=== PATIENT | male | born 1985 | race Hispanic/Latino ===

== ENCOUNTER 2021-04-04 12:09 | Emergency (ER) | payer OTHER ==
[~2021-04-04] VITALS: Ht 175.3 cm; Wt 147.4 kg
[2021-04-04] MEDS ORDERED: CASIRIVIMAB/IMDEVIMAB 10 ML in SODIUM CHLORIDE 0.9% 100 ML IV ONE (12:30)
[2021-04-04 14:21] VITALS: BP 145/87
== END 2021-04-04 14:23 | disposition home or self-care (01) ==
LOC: ER 13:01
DX: R06.02 Shortness of breath (principal); U07.1 COVID-19
CPT/HCPCS: 99284; J7050

== ENCOUNTER 2021-04-11 08:01 | Inpatient (IN) | payer OTHER ==
[~2021-04-11] VITALS: Ht 175.3 cm; Wt 150.1 kg
[2021-04-11] MEDS ORDERED: SODIUM CHLORIDE 0.9% 1000ML 1,000 ML IV STA (08:30)
[2021-04-11] MEDS ORDERED: DEXAMETHASONE SOD PHOS 10 MG/1 ML VIAL IV ONE (09:00)
[2021-04-11 09:07] LABS: BASOPHILS # (AUTO) 0.1 (0.0-0.1); BASOPHILS % 0.4 % (0.0-1.0); EOSINOPHILS # (AUTO) 0.2 (0.0-0.4); EOSINOPHILS % 0.9 % (0.0-6.0); HEMATOCRIT 37.3 % (38.2-49.6); HEMOGLOBIN 12.2 g/dL (14.0-18.0); LYMPHOCYTES # (AUTO) 1.7 (1.0-3.2); LYMPHOCYTES % 7.9 % (18.0-39.1); MEAN CORPUSCULAR HEMOGLOBIN 25.4 pg (28-32); MEAN CORPUSCULAR HGB CONC 32.7 g/dL (31-35); MEAN CORPUSCULAR VOLUME 77.7 fL (81-99); MONOCYTES # (AUTO) 1.2 (0.2-0.8); MONOCYTES % 5.6 % (4.4-11.3); NEUTROPHILS # (AUTO) 17.4 (2.1-6.9); NEUTROPHILS % 78.9 % (38.7-80.0); PLATELET COUNT 497 x10e3/uL (140-360)
[2021-04-11 09:57] LABS: ALBUMIN 3.5 g/dL (3.5-5.0); ALBUMIN/GLOBULIN RATIO 1.1 (0.8-2.0); CALCIUM 8.7 mg/dL (8.4-10.2); CREATININE, SERUM 0.85 mg/dL (0.72-1.25)
[2021-04-11 10:04] LABS: CREATINE KINASE MB 1.7 ng/mL (0-5.0)
[2021-04-11] MEDS ORDERED: MIDAZOLAM HCL 2 MG/2 ML VIAL ONE (11:58)
[2021-04-11] MEDS ORDERED: VECURONIUM BROMIDE FOR INJ 20 MG VIAL ONE (11:58)
[2021-04-11] MEDS ORDERED: WATER STERILE 10 ML VIAL ONE (11:58)
[2021-04-11] MEDS ORDERED: SUCCINYLCHOLINE CHLORIDE 20 MG/ML 10ML VIAL ONE (11:58)
[2021-04-11] MEDS ORDERED: ETOMIDATE 2 MG/ML 10 ML INJ IV ONE (11:58)
[2021-04-11] MEDS ORDERED: POTASSIUM CHLORIDE 10MEQ EA PO ONE (16:30)
[2021-04-11] MEDS ORDERED: REMDESIVIR 200MG 200 MG in SODIUM CHLORIDE 0.9% 100 ML 100 ML IV ONE (17:30)
[2021-04-11] MEDS: ASCORBIC ACID 500 MG TAB PO SCH (18:20)
[2021-04-11] MEDS: ENOXAPARIN SOD INJ 40 MG/0.4 ML SYR SC SCH (18:20)
[2021-04-11] MEDS: CEFTRIAXONE 1 GM in SODIUM CHLORIDE 0.9% 50ML 50 ML IV SCH (18:20)
[2021-04-11] MEDS: ACETAMINOPHEN 325 MG TAB PO PRN (18:57)
[2021-04-11 21:56] VITALS: BP 145/87
[2021-04-11 23:00] VITALS: BP 144/95
[2021-04-11 23:06] LABS: CREATINE KINASE MB 2.3 ng/mL (0-5.0)
[2021-04-12] VITALS (24 sets, daily range): BP systolic 101–172; BP diastolic 62–116
[2021-04-12 05:16] LABS: BASOPHILS % 0.3 % (0.0-1.0); EOSINOPHILS # (AUTO) 0.3 (0.0-0.4); HEMATOCRIT 33.5 % (38.2-49.6); LYMPHOCYTES # (AUTO) 1.5 (1.0-3.2); LYMPHOCYTES % 9.7 % (18.0-39.1); MEAN CORPUSCULAR HEMOGLOBIN 25.9 pg (28-32); MEAN CORPUSCULAR HGB CONC 32.8 g/dL (31-35); MEAN CORPUSCULAR VOLUME 78.8 fL (81-99); MONOCYTES # (AUTO) 0.6 (0.2-0.8); MONOCYTES % 3.6 % (4.4-11.3); NEUTROPHILS # (AUTO) 12.1 (2.1-6.9); NEUTROPHILS % 77.8 % (38.7-80.0); PLATELET COUNT 479 x10e3/uL (140-360); RED BLOOD COUNT 4.25 x10e6/uL (4.3-5.7); RED CELL DISTRIBUTION WIDTH 15.3 % (11.7-14.4)
[2021-04-12] MEDS: ENOXAPARIN SOD INJ 40 MG/0.4 ML SYR SC SCH ×2 (05:24→17:20)
[2021-04-12 05:44] LABS: ALBUMIN 3.2 g/dL (3.5-5.0); ANION GAP 14.2 mmol/L (8-16); CALCIUM 8.3 mg/dL (8.4-10.2); CREATININE, SERUM 0.74 mg/dL (0.72-1.25); POTASSIUM 3.2 mmol/L (3.5-5.1)
[2021-04-12] MEDS: ACETAMINOPHEN 325 MG TAB PO PRN ×2 (06:49→12:50)
[2021-04-12] MEDS ORDERED: POTASSIUM CHLORIDE 10MEQ EA PO ONE (08:45)
[2021-04-12] MEDS: CEFTRIAXONE 1 GM in SODIUM CHLORIDE 0.9% 50ML 50 ML IV SCH (08:52)
[2021-04-12] MEDS: DEXAMETHASONE SOD PHOS 10 MG/1 ML VIAL IV SCH (08:53)
[2021-04-12] MEDS: ZINC SULFATE 220 MG CAP PO SCH (08:53)
[2021-04-12] MEDS: ASCORBIC ACID 500 MG TAB PO SCH ×2 (08:53→17:20)
[2021-04-12 10:36] LABS: ANISOCYTOSIS SLIGHT; EOSINOPHILS % (MANUAL) 3 % (0-7); LYMPHOCYTES % (MANUAL) 10 % (19-48); MONOCYTES % (MANUAL) 4 % (3.4-9.0); MYELOCYTES % (MANUAL) 1 % (0-0); NEUTROPHILS % (MANUAL) 82 % (40-74); NUCLEATED RED BLOOD CELLS 1; PLATELET ESTIMATE SLIGHTLY INCREASED; PLATELET MORPHOLOGY COMMENT NORMAL; RBC MORPHOLOGY COMMENT NORMAL
[2021-04-12] MEDS: REMDESIVIR 100MG 100 MG in SODIUM CHLORIDE 0.9% 100 ML 100 ML IV SCH (13:35)
[2021-04-12] MEDS: GUAIFENESIN/CODEINE 5 ML LIQD PO PRN ×2 (15:29→20:53)
[2021-04-12] MEDS: ZOLPIDEM TARTRATE 5 MG TAB PO PRN (20:53)
[2021-04-13] VITALS (23 sets, daily range): BP systolic 120–164; BP diastolic 77–116
[2021-04-13] MEDS: ENOXAPARIN SOD INJ 40 MG/0.4 ML SYR SC SCH ×2 (06:09→17:22)
[2021-04-13 06:46] LABS: BASOPHILS % 0.2 % (0.0-1.0); EOSINOPHILS # (AUTO) 0.4 (0.0-0.4); EOSINOPHILS % 2.9 % (0.0-6.0); HEMATOCRIT 32.2 % (38.2-49.6); HEMOGLOBIN 10.6 g/dL (14.0-18.0); LYMPHOCYTES # (AUTO) 1.2 (1.0-3.2); LYMPHOCYTES % 9.4 % (18.0-39.1); MEAN CORPUSCULAR HGB CONC 32.9 g/dL (31-35); MEAN CORPUSCULAR VOLUME 78.9 fL (81-99); MONOCYTES # (AUTO) 0.5 (0.2-0.8); NEUTROPHILS # (AUTO) 10.1 (2.1-6.9); NEUTROPHILS % 78.7 % (38.7-80.0); PLATELET COUNT 466 x10e3/uL (140-360); RED BLOOD COUNT 4.08 x10e6/uL (4.3-5.7); RED CELL DISTRIBUTION WIDTH 15.7 % (11.7-14.4)
[2021-04-13 07:25] LABS: ALBUMIN 2.6 g/dL (3.5-5.0); ALBUMIN/GLOBULIN RATIO 0.7 (0.8-2.0); ANION GAP 14.4 mmol/L (8-16); CALCIUM 8.6 mg/dL (8.4-10.2); CREATININE, SERUM 0.72 mg/dL (0.72-1.25); MAGNESIUM 2.2 MG/DL (1.3-2.1); POTASSIUM 3.4 mmol/L (3.5-5.1)
[2021-04-13 07:53] LABS: FERRITIN 224.07 ng/mL (21.81-274.66)
[2021-04-13] MEDS: ZINC SULFATE 220 MG CAP PO SCH (08:06)
[2021-04-13] MEDS: ASCORBIC ACID 500 MG TAB PO SCH ×2 (08:06→17:22)
[2021-04-13] MEDS: CEFTRIAXONE 1 GM in SODIUM CHLORIDE 0.9% 50ML 50 ML IV SCH (08:06)
[2021-04-13] MEDS: DEXAMETHASONE SOD PHOS 10 MG/1 ML VIAL IV SCH (08:06)
[2021-04-13] MEDS: GUAIFENESIN/CODEINE 5 ML LIQD PO PRN ×3 (08:07→21:06)
[2021-04-13] MEDS ORDERED: POTASSIUM CHLORIDE 10MEQ EA PO ONE (10:15)
[2021-04-13] MEDS: ACETAMINOPHEN 325 MG TAB PO PRN ×2 (12:02→17:22)
[2021-04-13] MEDS ORDERED: REMDESIVIR 100MG 100 MG IV ONE (14:15)
[2021-04-13] MEDS ORDERED: SODIUM CHLORIDE 0.9% 100 ML ONE (14:16)
[2021-04-13] MEDS: REMDESIVIR 100MG 100 MG in SODIUM CHLORIDE 0.9% 100 ML 100 ML IV SCH (14:21)
[2021-04-13] MEDS: ZOLPIDEM TARTRATE 5 MG TAB PO PRN (21:06)
[2021-04-14] VITALS (24 sets, daily range): BP systolic 113–168; BP diastolic 69–104
[2021-04-14] MEDS: GUAIFENESIN/CODEINE 5 ML LIQD PO PRN ×4 (01:13→19:44)
[2021-04-14] MEDS: ACETAMINOPHEN 325 MG TAB PO PRN ×2 (01:13→10:23)
[2021-04-14] MEDS: ENOXAPARIN SOD INJ 40 MG/0.4 ML SYR SC SCH ×2 (04:57→16:36)
[2021-04-14 06:28] LABS: BASOPHILS % 0.1 % (0.0-1.0); EOSINOPHILS # (AUTO) 0.3 (0.0-0.4); EOSINOPHILS % 1.9 % (0.0-6.0); HEMATOCRIT 32.3 % (38.2-49.6); HEMOGLOBIN 10.4 g/dL (14.0-18.0); LYMPHOCYTES # (AUTO) 1.4 (1.0-3.2); LYMPHOCYTES % 9.4 % (18.0-39.1); MEAN CORPUSCULAR HEMOGLOBIN 25.6 pg (28-32); MEAN CORPUSCULAR HGB CONC 32.2 g/dL (31-35); MEAN CORPUSCULAR VOLUME 79.6 fL (81-99); MONOCYTES # (AUTO) 0.8 (0.2-0.8); MONOCYTES % 5.4 % (4.4-11.3); NEUTROPHILS # (AUTO) 11.6 (2.1-6.9); NEUTROPHILS % 80.8 % (38.7-80.0); PLATELET COUNT 508 x10e3/uL (140-360); RED BLOOD COUNT 4.06 x10e6/uL (4.3-5.7); RED CELL DISTRIBUTION WIDTH 15.9 % (11.7-14.4)
[2021-04-14 06:54] LABS: ALBUMIN 2.5 g/dL (3.5-5.0); ALBUMIN/GLOBULIN RATIO 0.7 (0.8-2.0); ANION GAP 13.9 mmol/L (8-16); CALCIUM 8.4 mg/dL (8.4-10.2); CREATININE, SERUM 0.69 mg/dL (0.72-1.25); POTASSIUM 3.9 mmol/L (3.5-5.1)
[2021-04-14] MEDS: REMDESIVIR 100MG 100 MG in SODIUM CHLORIDE 0.9% 100 ML IV SCH (09:18)
[2021-04-14] MEDS: DEXAMETHASONE SOD PHOS 10 MG/1 ML VIAL IV SCH (09:19)
[2021-04-14] MEDS: CEFTRIAXONE 1 GM in SODIUM CHLORIDE 0.9% 50ML 50 ML IV SCH (09:20)
[2021-04-14] MEDS: ZINC SULFATE 220 MG CAP PO SCH (09:21)
[2021-04-14] MEDS: CYANOCOBALAMIN 1,000 MCG TAB PO SCH (09:21)
[2021-04-14] MEDS: ASCORBIC ACID 500 MG TAB PO SCH ×2 (09:21→16:36)
[2021-04-14] MEDS ORDERED: ACETAMINOPHEN 1000 MG/100 ML IV STA (12:47)
[2021-04-14] MEDS: ZOLPIDEM TARTRATE 5 MG TAB PO PRN (20:29)
[2021-04-15] VITALS (24 sets, daily range): BP systolic 122–167; BP diastolic 74–133
[2021-04-15] MEDS: ACETAMINOPHEN 325 MG TAB PO PRN ×4 (00:07→20:25)
[2021-04-15] MEDS: GUAIFENESIN/CODEINE 5 ML LIQD PO PRN ×5 (05:03→22:53)
[2021-04-15] MEDS: ENOXAPARIN SOD INJ 40 MG/0.4 ML SYR SC SCH ×2 (05:03→17:03)
[2021-04-15 06:01] LABS: BASOPHILS # (AUTO) 0.1 (0.0-0.1); BASOPHILS % 0.2 % (0.0-1.0); EOSINOPHILS # (AUTO) 0.1 (0.0-0.4); EOSINOPHILS % 0.3 % (0.0-6.0); HEMOGLOBIN 10.7 g/dL (14.0-18.0); LYMPHOCYTES # (AUTO) 1.5 (1.0-3.2); MEAN CORPUSCULAR HGB CONC 32.4 g/dL (31-35); MEAN CORPUSCULAR VOLUME 80.1 fL (81-99); MONOCYTES # (AUTO) 1.2 (0.2-0.8); MONOCYTES % 5.4 % (4.4-11.3); NEUTROPHILS # (AUTO) 18.5 (2.1-6.9); NEUTROPHILS % 85.5 % (38.7-80.0); PLATELET COUNT 491 x10e3/uL (140-360); RED BLOOD COUNT 4.12 x10e6/uL (4.3-5.7); RED CELL DISTRIBUTION WIDTH 15.9 % (11.7-14.4)
[2021-04-15 06:57] LABS: ALBUMIN 2.5 g/dL (3.5-5.0); ALBUMIN/GLOBULIN RATIO 0.6 (0.8-2.0); ANION GAP 14.9 mmol/L (8-16); CALCIUM 8.5 mg/dL (8.4-10.2); CREATININE, SERUM 0.77 mg/dL (0.72-1.25); POTASSIUM 3.9 mmol/L (3.5-5.1)
[2021-04-15] MEDS: REMDESIVIR 100MG 100 MG in SODIUM CHLORIDE 0.9% 100 ML IV SCH (07:50)
[2021-04-15] MEDS: ZINC SULFATE 220 MG CAP PO SCH (07:52)
[2021-04-15] MEDS: CYANOCOBALAMIN 1,000 MCG TAB PO SCH (07:52)
[2021-04-15] MEDS: ASCORBIC ACID 500 MG TAB PO SCH ×2 (07:52→16:59)
[2021-04-15] MEDS: DEXAMETHASONE SOD PHOS 10 MG/1 ML VIAL IV SCH (07:57)
[2021-04-15] MEDS ORDERED: SODIUM CHLORIDE 0.9% 0 ML ONE (08:05)
[2021-04-15] MEDS: CEFTRIAXONE 1 GM in SODIUM CHLORIDE 0.9% 50ML 50 ML IV SCH (09:34)
[2021-04-15] MEDS: BARICITINIB 2 MG TABLET PO SCH (10:36)
[2021-04-15] MEDS ORDERED: LACTATED RINGER'S 500 ML INJ ONE ×2 (14:15→14:30)
[2021-04-15] MEDS: DEXMEDETOMIDINE 400MCG/NS100ML 100 ML IV PRN (15:07)
[2021-04-15] MEDS: MEROPENEM 1 GM in SODIUM CHLORIDE 0.9% 100 ML IV SCH ×2 (16:20→22:01)
[2021-04-15] MEDS: Vancomycin IV 1 GM in SODIUM CHLORIDE 0.9% 250ML 250 ML IV SCH (17:02)
[2021-04-15] MEDS ORDERED: ALTEPLASE RECOMBINANT 2 MG/2 ML VIAL IV PRN (17:30)
[2021-04-15] MEDS: ZOLPIDEM TARTRATE 5 MG TAB PO PRN (22:53)
[2021-04-15] MEDS ORDERED: ACETAMINOPHEN 1000 MG/100 ML IV STA (23:03)
[2021-04-16] VITALS (11 sets, daily range): BP systolic 67–209; BP diastolic 49–102
[2021-04-16] MEDS: Vancomycin IV 1 GM in SODIUM CHLORIDE 0.9% 250ML 250 ML IV SCH (02:29)
[2021-04-16 04:37] LABS: BASOPHILS # (AUTO) 0.1 (0.0-0.1); BASOPHILS % 0.2 % (0.0-1.0); EOSINOPHILS # (AUTO) 0.1 (0.0-0.4); EOSINOPHILS % 0.4 % (0.0-6.0); HEMATOCRIT 33.7 % (38.2-49.6); HEMOGLOBIN 10.8 g/dL (14.0-18.0); LYMPHOCYTES # (AUTO) 1.6 (1.0-3.2); LYMPHOCYTES % 5.3 % (18.0-39.1); MEAN CORPUSCULAR HEMOGLOBIN 25.8 pg (28-32); MEAN CORPUSCULAR VOLUME 80.4 fL (81-99); MONOCYTES # (AUTO) 0.9 (0.2-0.8); NEUTROPHILS # (AUTO) 26.6 (2.1-6.9); NEUTROPHILS % 89.5 % (38.7-80.0); PLATELET COUNT 491 x10e3/uL (140-360); RED BLOOD COUNT 4.19 x10e6/uL (4.3-5.7); RED CELL DISTRIBUTION WIDTH 15.8 % (11.7-14.4)
[2021-04-16 05:00] LABS: ALBUMIN 2.3 g/dL (3.5-5.0); ALBUMIN/GLOBULIN RATIO 0.6 (0.8-2.0); ANION GAP 14.4 mmol/L (8-16); CALCIUM 8.5 mg/dL (8.4-10.2); CREATININE, SERUM 0.83 mg/dL (0.72-1.25); POTASSIUM 4.4 mmol/L (3.5-5.1)
[2021-04-16] MEDS: ENOXAPARIN SOD INJ 40 MG/0.4 ML SYR SC SCH (05:49)
[2021-04-16] MEDS: MEROPENEM 1 GM in SODIUM CHLORIDE 0.9% 100 ML IV SCH (05:49)
[2021-04-16] MEDS: ACETAMINOPHEN 325 MG TAB PO PRN (06:20)
[2021-04-16] MEDS: DEXMEDETOMIDINE 400MCG/NS100ML 100 ML IV PRN (08:07)
[2021-04-16] MEDS: BARICITINIB 2 MG TABLET PO SCH (09:00)
[2021-04-16] MEDS ORDERED: MIDAZOLAM HCL 5MG/ML 10ML VIAL 100 ML IV PRN (09:00)
[2021-04-16] MEDS ORDERED: FENTANYL 2000MCG/NS 250 250 ML IV SCH (09:00)
[2021-04-16] MEDS: CYANOCOBALAMIN 1,000 MCG TAB PO SCH (09:00)
[2021-04-16] MEDS: ZINC SULFATE 220 MG CAP PO SCH (09:00)
[2021-04-16] MEDS: ASCORBIC ACID 500 MG TAB PO SCH (09:00)
[2021-04-16] MEDS ORDERED: ROCURONIUM BROMIDE 1,250 MG in SODIUM CHLORIDE 0.9% 250ML 125 ML IV SCH (09:00)
[2021-04-16] MEDS ORDERED: ROCURONIUM 1250MG/NS 250 250 ML ONE (09:20)
[2021-04-16] MEDS ORDERED: IBUPROFEN 800MG/ 200ML 200 ML IV ONE (10:13)
[2021-04-16] MEDS ORDERED: PROPOFOL IV EMULSION 10MG/ML 100 ML IV SCH (10:30)
[2021-04-16] MEDS: DEXAMETHASONE SOD PHOS 10 MG/1 ML VIAL IV SCH (10:52)
[2021-04-16] MEDS ORDERED: NOREPINEPHRINE 8 MG/D5W 250 ML 250 ML IV SCH (11:15)
[2021-04-16] MEDS ORDERED: SODIUM BICARBONATE 8.4% SYRING 100 ML ONE (11:54)
[2021-04-16] MEDS ORDERED: EPINEPHRINE HCL 1:1000 1ML 4 MG in DEXTROSE 5% 250ML 250 ML IV SCH (12:00)
[2021-04-16] MEDS ORDERED: EPINEPHRINE HCL SYRINGE ONE (12:08)
[2021-04-16 14:40] LABS: ABG PH 7.21 (7.35-7.45)
[2021-04-16 14:41] LABS: ABG HCO3 30 mmol/L (22-26); ABG PCO2 75 mmHg (35-45); ABG PO2 47 mmHg (80-105); ABG TCO2 32
[2021-04-16] MEDS ORDERED: ENOXAPARIN SOD INJ 40 MG/0.4 ML SYR SC SCH (17:30)
== END 2021-04-16 13:22 | disposition expired | DRG 871 ==
LOC: ER 08:28 → ERHOLD 09:00 → ICU 21:43
PROVIDERS: ADMIT Internal Medicine; ATTEND Internal Medicine
PROC: XW043E5 Introduction of Remdesivir Anti-infective into Central Vein, Percutaneous Approach, New Technology Group 5 (ICD-10-PCS; 2021-04-11)
PROC: 02HV33Z Insertion of Infusion Device into Superior Vena Cava, Percutaneous Approach (ICD-10-PCS; 2021-04-11)
PROC: 8E0ZXY6 Isolation (ICD-10-PCS; 2021-04-11)
PROC: 5A1935Z Respiratory Ventilation, Less than 24 Consecutive Hours (ICD-10-PCS; principal; 2021-04-16)
PROC: 0BH17EZ Insertion of Endotracheal Airway into Trachea, Via Natural or Artificial Opening (ICD-10-PCS; 2021-04-16)
PROC: 5A12012 Performance of Cardiac Output, Single, Manual (ICD-10-PCS; 2021-04-16)
DX: A41.89 Other specified sepsis (principal); U07.1 COVID-19; J12.89 Other viral pneumonia; J15.9 Unspecified bacterial pneumonia; J96.01 Acute respiratory failure with hypoxia; R65.21 Severe sepsis with septic shock; B19.9 Unspecified viral hepatitis without hepatic coma; B97.89 Other viral agents as the cause of diseases classified elsewhere; E87.6 Hypokalemia; D50.0 Iron deficiency anemia secondary to blood loss (chronic); D63.8 Anemia in other chronic diseases classified elsewhere; D50.9 Iron deficiency anemia, unspecified
CPT/HCPCS: 31500; 36415; 36569; 36600; 71045; 80053; 82550; 82553; 82607; 82728; 82746; 82805; 83540; 83735; 84466; 84484; 85025; 85379; 86140; 87040; 92950; 93005; 94002; 94003; 94660; 99285; J0171; J0330; J0456; J0696; J1100; J1650; J2185; J2250; J2997; J3370; J7030; J7050; J7070; J7121; U0002